=== PATIENT | male | born 1990 | race Caucasian/White ===

== ENCOUNTER 2019-07-06 04:16 | Emergency (ER) | payer SELFPAY ==
[~2019-07-06] VITALS: Ht 172.7 cm; Wt 68.0 kg
[2019-07-06 04:20] VITALS: BP 130/78
--- NOTE | 2019-07-06 04:21 | NUR ---
ED Nurse Note: PT BROUGHT IN BY [facility]CCA AND PAMELA FROM [place] WITH BEHAVIORAL COMPLAINT. PT WAS SEEN AT [facility] ([facility] STILL PRESENT). PT DENIES PAIN, SI OR HI AT THIS TIME. VSS, NAD.
--- NOTE | 2019-07-06 04:24 | NUR ---
ED Nurse Note: PT IS NOT PLACED ON HOLD BY [employer]
--- NOTE | 2019-07-06 04:25 | NUR ---
ED Nurse Note: ermd at bedside
--- NOTE | 2019-07-06 04:34 | Emergency Room Report ---
History of Present Illness General Chief Complaint: Behavioral Complaint Source: Patient Present Illness HPI This a 28-year-old male presents with chief complaint of hearing voices. He said he just came on 30 minutes ago. He has an armband from [facility] last night. He was just discharged there. Work-up was negative. Drug screen is positive for marijuana. Labs unremarkable. I looked through his discharge paperwork and he had another name when he was at a hospital in [place] couple days before. Patient denies suicidal thoughts homicidal thought. He denies any drugs or alcohol. Not cooperative with his history. Allergies: Coded Allergies: No Known Allergies (Unverified , 07/06/19) Patient History Past Medical History: see triage record, old chart reviewed Past Surgical History: none Family History: none Social History: tobacco use Immunizations: other Reviewed Nursing Documentation: PMH: Agreed; PSxH: Agreed Nursing Documentation-PMH History Of Psychiatric Problem: Yes Review of Systems ENT: Denies: sore throat Cardiovascular: Denies: chest pain, palpitations Gastrointestinal/Abdominal: Denies: nausea, vomiting, diarrhea Musculoskeletal: Denies: back problems Skin: Denies: rash Neurological: Denies: SAUNDERS, seizures All Other Systems: negative except mentioned in HPI Physical Exam Vital Signs Date Time Temp Pulse Resp B/P (MAP) Pulse Ox O2 Delivery O2 Flow Rate FiO2 07/06/19 04:16 97.2 92 18 130/78 (95) 99 Room Air 07/06/19 04:20 98 Vitals normal Sp02 EP Interpretation: reviewed, normal General Appearance: alert/responsive, no apparent distress, non-toxic Head: normocephalic, atraumatic Eyes: PERRL, EOMI ENT: oropharynx normal Neck: supple/symm/no masses Respiratory: effort normal, no rhonchi, no wheezing Cardiovascular: no murmur, gallop, rub Gastrointestinal: non-tender, no mass, non-distended, no rebound/guarding, normal bowel sounds Musculoskeletal: gait & station normal Neurologic: oriented x3, sensory intact, motor strength/tone normal Skin: no rash, normal palpation Medical Decision Making Diagnostic Impression: Primary Impression: Behavioral disorder Additional Impression: Psychosis Qualified Codes: F23 - Brief psychotic disorder ER Course Patient with psychosis. I suspect this is baseline and he wants a place to stay. Patient was given referral to mental health as an outpatient and also shelters. He said he wants to place a sleep. He was also given a tap card for the bus by [facility]. He is calm here. Sleeping comfortably. He said he does not want to go to shelters. Will discharge home in the morning. Last Vital Signs Date Time Temp Pulse Resp B/P (MAP) Pulse Ox O2 Delivery O2 Flow Rate FiO2 07/06/19 04:20 92 18 Room Air 98 07/06/19 04:20 98.1 130/78 99 Status: unchanged Disposition: HOME, SELF-CARE Condition: Stable Additional Instructions: Follow-up with mental health in a week. Take your medication. Return if symptoms worsen. Mark Parikh MD July 06, 2019 04:34
[2019-07-06 05:00] VITALS: BP 130/78
--- NOTE | 2019-07-06 05:00 | NUR ---
Homeless Discharge: Patient is being discharged from medical care. Awake, alert and oriented x3. After care instructions, including referral to community resources were given pt refused to disclose location; at this time patient does not request medications, equipment or placement. ID band were removed. Patient ambulated out with all personal belongings with steady gait.
== END 2019-07-06 05:05 | disposition home or self-care (01) ==
LOC: EDBD 04:16 → EMR 05:01
DX: F23 Brief psychotic disorder (principal)
CPT/HCPCS: 99283